=== PATIENT | male | born 1940 | race Caucasian/White ===

== ENCOUNTER → 2017-07-18 | Outpatient (CLI) | payer OTHER ==
[~2017-07-18] MED LIST: ALLOPURINOL 10100 M1 PO; COREG6.25 MG PO; LASIX 40 MG TAB40 M2 PO; LIPITOR40 MG PO; LISINOPRIL2.5 MG PO; XARELTO15 MG PO
== END ==
LOC: HYPER 06:46
DX: I87.2 Venous insufficiency (chronic) (peripheral) (principal); L97.422 Non-pressure chronic ulcer of left heel and midfoot with fat layer exposed; I73.9 Peripheral vascular disease, unspecified; J44.9 Chronic obstructive pulmonary disease, unspecified; R60.0 Localized edema; I10 Essential (primary) hypertension; E78.5 Hyperlipidemia, unspecified; Z95.1 Presence of aortocoronary bypass graft; Z87.891 Personal history of nicotine dependence; Z72.89 Other problems related to lifestyle

== ENCOUNTER → 2017-08-11 | Outpatient (CLI) | payer OTHER | LOC: HYPER 07:07 | DX: L97.422 Non-pressure chronic ulcer of left heel and midfoot with fat layer exposed (principal); I87.2 Venous insufficiency (chronic) (peripheral); I73.9 Peripheral vascular disease, unspecified; J44.9 Chronic obstructive pulmonary disease, unspecified; R60.0 Localized edema; E78.5 Hyperlipidemia, unspecified; I10 Essential (primary) hypertension; Z95.1 Presence of aortocoronary bypass graft; Z87.891 Personal history of nicotine dependence ==

== ENCOUNTER → 2017-09-29 | Outpatient (CLI) | payer OTHER | LOC: HYPER 06:54 | DX: L97.422 Non-pressure chronic ulcer of left heel and midfoot with fat layer exposed (principal); I87.2 Venous insufficiency (chronic) (peripheral); I73.9 Peripheral vascular disease, unspecified; J44.9 Chronic obstructive pulmonary disease, unspecified; R60.0 Localized edema; E78.5 Hyperlipidemia, unspecified; I10 Essential (primary) hypertension; Z87.891 Personal history of nicotine dependence ==

== ENCOUNTER → 2017-10-13 | Outpatient (CLI) | payer OTHER | LOC: HYPER 06:46 | DX: L97.422 Non-pressure chronic ulcer of left heel and midfoot with fat layer exposed (principal); I87.2 Venous insufficiency (chronic) (peripheral); J44.9 Chronic obstructive pulmonary disease, unspecified; I73.89 Other specified peripheral vascular diseases; E78.5 Hyperlipidemia, unspecified; I10 Essential (primary) hypertension; Z95.1 Presence of aortocoronary bypass graft; Z87.891 Personal history of nicotine dependence ==

== ENCOUNTER → 2017-11-03 | Outpatient (CLI) | payer OTHER | LOC: HYPER 06:44 | DX: L97.422 Non-pressure chronic ulcer of left heel and midfoot with fat layer exposed (principal); I73.89 Other specified peripheral vascular diseases; J44.9 Chronic obstructive pulmonary disease, unspecified; R60.0 Localized edema; E78.5 Hyperlipidemia, unspecified; I10 Essential (primary) hypertension; Z87.891 Personal history of nicotine dependence ==

== ENCOUNTER → 2017-11-24 | Outpatient (CLI) | payer OTHER | LOC: HYPER 06:50 | DX: L97.422 Non-pressure chronic ulcer of left heel and midfoot with fat layer exposed (principal); S80.812A Abrasion, left lower leg, initial encounter; I73.89 Other specified peripheral vascular diseases; J44.9 Chronic obstructive pulmonary disease, unspecified; I73.9 Peripheral vascular disease, unspecified; E78.5 Hyperlipidemia, unspecified; I10 Essential (primary) hypertension; Z87.891 Personal history of nicotine dependence; Z95.1 Presence of aortocoronary bypass graft; X58.XXXA Exposure to other specified factors, initial encounter; Y93.89 Activity, other specified; Y92.89 Other specified places as the place of occurrence of the external cause; Y99.8 Other external cause status ==

== ENCOUNTER → 2017-12-12 | Outpatient (CLI) | payer OTHER | LOC: HYPER 06:34 | DX: L97.422 Non-pressure chronic ulcer of left heel and midfoot with fat layer exposed (principal); I73.89 Other specified peripheral vascular diseases; I87.2 Venous insufficiency (chronic) (peripheral); E78.5 Hyperlipidemia, unspecified; I10 Essential (primary) hypertension; J44.9 Chronic obstructive pulmonary disease, unspecified; Z87.01 Personal history of pneumonia (recurrent); Z95.1 Presence of aortocoronary bypass graft; Z96.652 Presence of left artificial knee joint; Z87.891 Personal history of nicotine dependence ==

== ENCOUNTER → 2018-02-10 | Outpatient (CLI) | payer OTHER | LOC: HYPER 07:55 | DX: I87.012 Postthrombotic syndrome with ulcer of left lower extremity (principal); L97.522 Non-pressure chronic ulcer of other part of left foot with fat layer exposed; I70.245 Atherosclerosis of native arteries of left leg with ulceration of other part of foot; L97.422 Non-pressure chronic ulcer of left heel and midfoot with fat layer exposed; L89.153 Pressure ulcer of sacral region, stage 3; I13.0 Hypertensive heart and chronic kidney disease with heart failure and stage 1 through stage 4 chronic kidney disease, or unspecified chronic kidney disease; N18.3 Chronic kidney disease, stage 3 (moderate); I50.9 Heart failure, unspecified; I73.89 Other specified peripheral vascular diseases; I87.2 Venous insufficiency (chronic) (peripheral); E78.5 Hyperlipidemia, unspecified; J44.9 Chronic obstructive pulmonary disease, unspecified; I25.10 Atherosclerotic heart disease of native coronary artery without angina pectoris; Z79.51 Long term (current) use of inhaled steroids; Z87.891 Personal history of nicotine dependence ==

== ENCOUNTER → 2018-02-17 | Outpatient (CLI) | payer OTHER ==
--- NOTE | ~2018-02-17 | 2DMMODE ---
[facility] [place] [address] 2 D/M-MODE ECHOCARDIOGRAM Name: ALEXANDERMYRTLE CARRANZA Room #: [facility]#: [id number] Admission: 02/17/18 Attend Phys: Peter Gongora Discharge: Date of : 42 Date of Service: 02/17/18 1022 Report #: [id number] THIS REPORT FOR: //name// APPROVED REPORT Study performed: 02/17/2018 09:03:35 EXAM: Comprehensive 2D, Doppler, and color-flow Echocardiogram Patient Location: Out-Patient Status: routine BSA: 2.00 HR: 75 bpm BP: 110/70 mmHg Rhythm: Atrial Flutter Other Information Study Quality: Adequate Indications Ischemic cardiomyopathy. Hx: CABG, CHF, HTN, HLP 2D Dimensions RVDd: 35.53 mm IVSd: 15.00 (7-11mm) LVOT Diam: 23.55 (18-24mm) LVDd: 56.25 mm PWd: 12.00 (7-11mm) Ascending Ao: 34.57 (22-36mm) LVDs: 51.23 (25-40mm) Aortic Root: 36.00 mm Volumes Left Atrial Volume (Systole) Single Plane 4CH: 109.57 mL Single Plane 2CH: 92.17 mL LA ESV Index: 54.00 mL/m2 Aortic Valve AoV Peak Ilya.: 1.72 m/s AO Peak Gr.: 11.98 mmHg LVOT Max P.24 mmHg LVOT Max V: 0.55 m/s JESSICA Vmax: 1.40 cm2 Mitral Valve E/A Ratio: 2.7 MV Decel. Time: 191.01 ms MV E Max Ilya.: 1.05 m/s [facility] [address] [place] [address] 2 D/M-MODE ECHOCARDIOGRAM Name: MYRTLE ALEXANDER Room #: [facility]#: [id number] Admission: 02/17/18 Attend Phys: Peter Gongora Discharge: Date of : 42 Date of Service: 02/17/18 1022 Report #: [id number] MV A Ilya.: 0.39 m/s MV PHT: 55.39 ms IVRT: 152.25 ms Pulmonary Valve PV Peak Ilya.: 0.56 m/s PV Peak Gr.: 1.23 mmHg Tricuspid Valve TR Peak Ilya.: 3.30 m/s RAP Estimate: 5.00 mmHg TR Peak Gr.: 44.00 mmHg PA Pressure: 49.00 mmHg Left Ventricle Left ventricle is at the upper limits of normal. Regional wall motion abnormalities are noted. Mild to moderate concentric left ventricular hypertrophy. Left ventricular systolic function is moderate to severely decreased. LVEF is 30-35%. This study is not technically sufficient to allow evaluation of the LV diastolic function due to atrial flutter. Right Ventricle The right ventricle is normal size. The right ventricular systolic function is normal. Atria Left atrium is dilated. The right atrium size is normal. Aortic Valve Aortic valve leaflets are moderately thickened and calcified. Trace aortic regurgitation. Mild to moderate aortic stenosis. Calculated valve area by continuity equation is 1.4cm2. Mitral Valve Mitral valve leaflets are moderately thickened. Moderate mitral annular calcification. Mild mitral regurgitation. No evidence of mitral valve stenosis. Tricuspid Valve The tricuspid valve is normal in structure. Mild tricuspid regurgitation. Estimated PAP is 50mmHg. Pulmonic Valve The pulmonary valve is normal in structure. Trace pulmonic regurgitation. Great [place]essels [facility] [address] [place] [address] 2 D/M-MODE ECHOCARDIOGRAM Name: MYRTLE ALEXANDER Room #: [facility]#: [id number] Admission: 02/17/18 Attend Phys: Peter Gongora Discharge: Date of : 42 Date of Service: 02/17/18 1022 Report #: [id number] The aortic root is normal in size. The ascending aorta is normal in size. IVC is normal in size and collapses >50% with inspiration. Pericardium There is no pericardial effusion. <Conclusion> Left ventricle is at the upper limits of normal. Regional wall motion abnormalities are noted. LVEF is 30-35%. Left atrium is dilated. Aortic valve leaflets are moderately thickened and calcified. Trace aortic regurgitation. Mild to moderate aortic stenosis. Calculated valve area by continuity equation is 1.4cm2. Mitral valve leaflets are moderately thickened. Moderate mitral annular calcification. Mild mitral regurgitation. The tricuspid valve is normal in structure. Mild tricuspid regurgitation. Estimated PAP is 50mmHg. The pulmonary valve is normal in structure. Trace pulmonic regurgitation. There is no pericardial effusion. <ELECTRONICALLY SIGNED> By: Peter Wallace MD 02/17/18 1022 1022 1022 Peter Wallace MD /INF
== END ==
LOC: CV 08:47
DX: I08.1 Rheumatic disorders of both mitral and tricuspid valves (principal); I48.92 Unspecified atrial flutter; I25.5 Ischemic cardiomyopathy; I11.0 Hypertensive heart disease with heart failure; I50.9 Heart failure, unspecified; E78.5 Hyperlipidemia, unspecified; Z95.1 Presence of aortocoronary bypass graft

== ENCOUNTER → 2018-02-22 | Outpatient (CLI) | payer OTHER | LOC: HYPER | DX: I87.012 Postthrombotic syndrome with ulcer of left lower extremity (principal); I70.244 Atherosclerosis of native arteries of left leg with ulceration of heel and midfoot; L97.422 Non-pressure chronic ulcer of left heel and midfoot with fat layer exposed; I70.245 Atherosclerosis of native arteries of left leg with ulceration of other part of foot; L97.522 Non-pressure chronic ulcer of other part of left foot with fat layer exposed; L89.153 Pressure ulcer of sacral region, stage 3; E78.5 Hyperlipidemia, unspecified; I87.2 Venous insufficiency (chronic) (peripheral); I25.10 Atherosclerotic heart disease of native coronary artery without angina pectoris; I13.0 Hypertensive heart and chronic kidney disease with heart failure and stage 1 through stage 4 chronic kidney disease, or unspecified chronic kidney disease; I50.9 Heart failure, unspecified; N18.3 Chronic kidney disease, stage 3 (moderate); J44.9 Chronic obstructive pulmonary disease, unspecified; Z79.51 Long term (current) use of inhaled steroids; Z99.81 Dependence on supplemental oxygen; Z87.891 Personal history of nicotine dependence ==

== ENCOUNTER 2018-02-23 09:08 | Inpatient (IN) | payer OTHER ==
[~2018-02-23] VITALS: Ht 177.8 cm; Wt 86.1 kg
--- NOTE | ~2018-02-23 | HC ---
[facility] [place] [address] CONSULTATION Name: MYRTLE ALEXANDER Juliette Room #: 420-P ADM IN .R.#: [id number] Admission: 02/23/18 Attend Phys: Patrice Aceves MD Discharge: Date of : 42 Report #: [id number] THIS REPORT FOR: //name// CC: Kirsten Aceves DATE OF SERVICE: 02/23/2018 CHIEF COMPLAINT: Ischemia to the left lower extremity with cellulitis. HISTORY OF PRESENT ILLNESS: This is a 77-year-old white male patient with whom I am familiar from outpatient wound care. He developed many months ago and ulceration on the plantar aspect of his heel after receiving cortisone injections. This area has continued to slowly worsen. He has had noninvasive vascular studies, which demonstrated significant arterial disease of the left lower extremity. It was not felt amenable to easy percutaneous intervention; however, he has a significant cardiomyopathy and he has been considered for vascular bypass surgery at within the last 12 months and he was felt to be a very high surgical risk. Therefore, that intervention was not offered. He has had increasing pain in his legs and foot even at rest. He has had increasing erythema to the distal portion of his left foot, some necrosis of the second toe, which is new and he is admitted for ongoing evaluation and treatment with antibiotic therapy for what appears to be an infectious component to the ischemic left foot. PAST MEDICAL HISTORY: Once again is positive for severe peripheral arterial disease. Thus far, no particular intervention has been undertaken. He has a history of ischemic cardiomyopathy, coronary artery disease, status post CABG, history of an atrial flutter, thoracoabdominal aneurysm repair, myocardial infarction. His last echo demonstrates LVEF of 30-35% with regional wall motion abnormalities and moderate aortic stenosis. MEDICATIONS: Fentanyl patch, acetaminophen, hydrocodone, morphine, ondansetron, polyethylene glycol, zolpidem, topical nitroglycerin. SOCIAL HISTORY: The patient is a nonsmoker, denies alcohol use. Lives at home with his . FAMILY HISTORY: Noncontributory. REVIEW OF SYSTEMS: CONSTITUTIONAL: The patient denies fever, chills, weight loss. NEUROLOGICAL: The patient denies focal weakness, numbness or tingling. EYES: The patient denies vision change, redness or drainage. ENT: The patient denies earache, nasal discharge or sore throat. CARDIOVASCULAR: The patient denies chest pain, palpitation or diaphoresis. [address] [address] CONSULTATION Name: MYRTLE ALEXANDER Room #: 420-P [facility] IN [facility]#: [id number] Admission: 02/23/18 Attend Phys: Patrice Aceves MD Discharge: Date of : 42 Report #: [id number] PULMONARY: The patient denies cough or shortness of breath. GASTROINTESTINAL: The patient denies nausea, vomiting, diarrhea or abdominal pain. ORTHOPEDIC: The patient complains of significant pain involving his left heel and left distal foot, as well as ulceration there. Other systems in a 14-point review of systems are negative. PHYSICAL EXAMINATION: VITAL SIGNS: At this time include pulse 67, respiratory rate 14, blood pressure 104/60, and temperature 97.5. GENERAL: This is a chronically ill-appearing male patient who appears to be in moderate discomfort. HEENT: Head normocephalic. Nose and throat clear. NECK: Supple. LUNGS: Clear. HEART: Regular rate and rhythm. ABDOMEN: Bowel sounds present. EXTREMITIES: Examination of the lower extremities demonstrated some necrosis and some eschar formation on his left second toe. He has erythema involving the distal aspect of his left foot. There is a circular ulcer on the plantar aspect of the left heel that has a small amount of granulation tissue, but moderate fibrin present. Distal pulses are nonpalpable. LABORATORY STUDIES: Include a sed rate of 8. Sodium 136, potassium 4.2, CO2 25, BUN 49, creatinine 1.4, albumin 3.1. CRP is 11.8. Lactic acid 1.8. INR 1.5. White blood cell count is 6.7, hemoglobin of 14.0. CLINICAL IMPRESSION: 1. Cellulitis, left foot. 2. Ischemia, left foot with necrosis of second toe. 3. Plantar arterial ulcer, left heel. 4. Severe peripheral disease. 5. Ischemic cardiomyopathy. 6. History of atrial flutter. 7. History of myocardial infarction, status post coronary artery bypass graft. RECOMMENDATIONS: At this point in time, the patient will have infectious disease consultation. I have discussed this with Dr. Oswald. Consider intravenous antibiotic therapy. New cultures will be obtained. We will check an MRI. Although with his sed rate and CRP being somewhat lower, I think the likelihood of an underlying calcaneal osteomyelitis is low. Dr. Velasquez will schedule him for angiography with hopes that some percutaneous intervention would be possible. If not, we would need to revisit his surgical risks and consider whether or not he would be able to undergo a surgical revascularization. We will recommend elevation of the extremity. We will [address] [place] [address] CONSULTATION Name: MYRTLE ALEXANDER Room #: 420-P [facility] IN M.R.#: [id number] Admission: 02/23/18 Attend Phys: Patrice Aceves MD Discharge: Date of : 42 Report #: [id number] recommend a collagen based dressing to the heel on the left side, Betadine to the left second toe, nitroglycerin paste to the dorsal aspect of the foot in hopes of reversing some of the ischemia. I have taken the liberty of starting him on a low-dose fentanyl patch to help control the pain that is preventing him from sleeping and functioning at home. I appreciate being asked to see him in consultation. <ELECTRONICALLY SIGNED> By: Kwabena Fulton MD 02/24/18 0851 1343 0703 Kwabena Fulton MD /nt
--- NOTE | ~2018-02-23 | EKG ---
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 : 1940 Requested By: Nan Flores Order Number: [id number] MD: Hayden Nobles Measurements Intervals Norris Rate: 64 P: [place]: QRS: -25 QRSD: 133 T: 120 QT: 469 QTc: 484 Interpretive Statements Atrial fibrillation Nonspecific intraventricular conduction delay Nonspecific ST and T wave abnormality No previous ECG available for comparison Electronically Signed On 02-24-2018 8:23:04 CDT by Hayden Nobles [email or web address] <ELECTRONICALLY SIGNED> By: Hayden Nobles MD, [facility] 02/24/18 0823 1320 1320 Hayden Nobles MD, FAC /EPI
--- NOTE | ~2018-02-23 | EKG ---
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
--- NOTE | ~2018-02-23 | HC ---
[facility] [place] [address] CONSULTATION Name: MYRTLE ALEXANDER Room #: 420-P [facility] [place] ..#: [id number] Admission: 02/23/18 Attend Phys: Patrice Aceves MD Discharge: Date of : 42 Report #: [id number] THIS REPORT FOR: //name// CC: Kirsten Aceves DATE OF SERVICE: 02/23/2018 TYPE OF REPORT: Infectious diseases consultation. REASON FOR CONSULTATION: I was asked to evaluate concerning left ischemic foot wound with secondary infection. HISTORY OF PRESENT ILLNESS: The patient was a 77-year old, underlying history of ischemic cardiomyopathy, coronary artery disease and peripheral vascular disease. He has had a nonhealing wound to his left plantar heel. This has been ongoing for several months. He was evaluated at [facility] by Dr. Hernandez who recommended peripheral bypass. Cardiology and Anesthesiology would not clear him for surgery due to his cardiomyopathy. He therefore has been treating this with localized wound care. Dr. Fulton evaluated him yesterday for further treatment. He felt inpatient evaluation was necessary to further workup his anatomy for possible percutaneous treatment of his occlusive arterial disease, also for antibiotic therapy. No fever, chills or sweats. Continues to have moderate amount of pain in the left lower leg. He remains on anticoagulation with Xarelto. His left second toe developed swelling and an ulceration over the last 2 weeks. This has worsened. Now has redness to the distal aspect of his dorsal foot. He reports no specific trauma. Minimal drainage. He has had vein harvest from the left leg for his coronary artery bypass grafting. Also noticed to have atrial flutter and a thoracoabdominal aortic aneurysm repair. No cerebrovascular disease reported. REVIEW OF SYSTEMS: Ten-point review otherwise negative. ALLERGIES: Negative. MEDICATIONS: As noted on his MAR, which were reviewed. PAST MEDICAL HISTORY: In addition to the above, he has had a right fem-pop bypass. He is a past smoker. FAMILY HISTORY: Noncontributory. SOCIAL HISTORY: No significant alcohol intake. Lives with his spouse. No HIV risk factors. PHYSICAL EXAMINATION: [facility] [address] [place] [address] CONSULTATION Name: MYRTLE ALEXANDER Room #: 420-P [facility] [place] [facility].#: [id number] Admission: 02/23/18 Attend Phys: Patrice Aceves MD Discharge: Date of : 42 Report #: [id number] GENERAL APPEARANCE: He is well-developed, well-nourished, in no distress. HEENT: Eyes without scleral icterus or conjunctivitis. Mouth without mucositis or ulceration. NECK: Supple with no thyromegaly, mass or JVD. LUNGS: Clear, without adventitial sounds. HEART: Irregular without murmur, gallop or rub. Pulses, femoral +3 on the right, +2 on the left. Popliteal, left feet not palpable. ABDOMEN: Soft and nontender. No hepatosplenomegaly or mass. BACK: Nontender. No CVA tenderness. EXTREMITIES: Left foot with a wound to the plantar aspect of his heel. There was fibrinous debris at the base. No surrounding cellulitis. This was very tender to palpation. Left second toe had eschar with ulceration, 1+ swelling, erythema extended to the dorsum of his distal foot. Small amount of serous drainage was identified. NEUROLOGICAL: Cranial nerves intact. Sensation was intact in both lower extremities. Strength was normal. PSYCHIATRIC: Normal. SKIN: Without rash. LYMPHATIC: No palpable adenopathy. LABORATORY DATA: Creatinine 1.4. Alkaline phosphatase 127. Hemoglobin 14; WBC 6.7 and platelet count 228,000. IMPRESSION: 1. A 77-year old with ischemic cardiomyopathy and peripheral vascular disease, now with ischemic issues involving the left leg. He has known occlusive disease that should require a peripheral bypass; however, the patient is not a surgical candidate per Cardiology recommendations. The patient is to be evaluated with angiogram and possibly percutaneous stenting approach to his care. He will get an increased blood flow to the left foot in order to begin healing. 2. Vascular second toe wound with secondary infection. 3. Chronic left plantar heel wound. 4. Chronic kidney disease. RECOMMENDATIONS: We will continue with IV antibiotic therapy pending further vascular workup. Obtain culture results. Continue wound care. Concern he will ultimately need an amputation of the left second toe. We will see how he does after revascularization procedure. <ELECTRONICALLY SIGNED> By: Steve Oswald MD 02/24/18 1303 1220 0010 Steve Oswald MD /nt
[2018-02-23 10:48] LABS: HEMATOCRIT 42.3 % (42.0-52.0); MCH 31.5 pg (26.0-34.0); MCV 95.4 fL (80.0-100.0); RBC 4.44 mil/uL (4.50-6.00); RDW 20.7 % (10.5-14.5); WBC 6.7 thou/uL (4.0-11.0)
[2018-02-23 11:00] LABS: CALCIUM 8.7 mg/dL (8.5-10.1); CREATININE 1.4 mg/dL (0.7-1.3); POTASSIUM 4.2 mmol/L (3.5-5.1)
[2018-02-23 11:01] LABS: INR 1.5; PROTIME 15.1 Seconds (9.3-11.4)
[2018-02-23 11:06] LABS: ALBUMIN 3.1 g/dL (3.4-5.0); TOTAL BILIRUBIN 0.6 mg/dL (<0.1-1.0); TOTAL PROTEIN 6.2 g/dL (6.4-8.2)
[2018-02-23 11:08] VITALS: BP 104/68
[2018-02-23] MEDS ORDERED: ALLOPURINOL 10100 M1 PO (13:40)
[2018-02-23] MEDS ORDERED: COREG6.25 MG PO (13:41)
[2018-02-23] MEDS ORDERED: LIPITOR40 MG PO (13:41)
[2018-02-23] MEDS ORDERED: XARELTO15 MG PO (13:42)
[2018-02-23] MEDS ORDERED: LASIX 40 MG TAB40 M2 PO (13:42)
[2018-02-23] MEDS ORDERED: LISINOPRIL2.5 MG PO (13:43)
[2018-02-23 16:27] VITALS: BP 134/85
[2018-02-23 19:40] VITALS: BP 115/67
[2018-02-24 04:13] VITALS: BP 89/55
[2018-02-24 07:40] VITALS: BP 100/68
[2018-02-24 09:58] LABS: CALCIUM 9.1 mg/dL (8.5-10.1); CREATININE 1.4 mg/dL (0.7-1.3); POTASSIUM 4.8 mmol/L (3.5-5.1)
[2018-02-24 19:33] VITALS: BP 105/66
[2018-02-25 06:01] LABS: ABSOLUTE NEUTROPHILS 5.7 thou/uL (1.4-8.2); BASOPHILS 0.4 % (0.0-2.0); EOSINOPHILS 1.8 % (0.0-3.0); HEMATOCRIT 38.3 % (42.0-52.0); HEMOGLOBIN 12.2 gm/dL (14.0-18.0); LYMPHOCYTES 11.7 % (24.0-44.0); MCH 30.7 pg (26.0-34.0); PLATELET COUNT 194 thou/uL (150-400); POLYS 75.1 % (36.0-66.0); RBC 3.99 mil/uL (4.50-6.00); RDW 20.8 % (10.5-14.5); WBC 7.5 thou/uL (4.0-11.0)
[2018-02-25 06:07] LABS: CREATININE 1.3 mg/dL (0.7-1.3); POTASSIUM 4.8 mmol/L (3.5-5.1)
[2018-02-25 09:07] LABS: ANISOCYTOSIS 2+; OVALOCYTES FEW
[2018-02-25 09:10] VITALS: BP 99/66
[2018-02-25 17:39] VITALS: BP 87/48
[2018-02-25 19:40] VITALS: BP 109/43
[2018-02-26 04:30] VITALS: BP 100/67
[2018-02-26 05:14] LABS: ABSOLUTE NEUTROPHILS 6.2 thou/uL (1.4-8.2); BASOPHILS 0.3 % (0.0-2.0); EOSINOPHILS 1.2 % (0.0-3.0); HEMATOCRIT 38.5 % (42.0-52.0); HEMOGLOBIN 12.3 gm/dL (14.0-18.0); LYMPHOCYTES 11.9 % (24.0-44.0); MCH 30.9 pg (26.0-34.0); MCHC 31.8 g/dL (28.0-37.0); MCV 96.9 fL (80.0-100.0); MONOCYTES 10.5 % (1.0-8.0); PLATELET COUNT 196 thou/uL (150-400); POLYS 76.1 % (36.0-66.0); RBC 3.97 mil/uL (4.50-6.00); RDW 20.7 % (10.5-14.5); WBC 8.1 thou/uL (4.0-11.0)
[2018-02-26 05:31] LABS: CALCIUM 9.1 mg/dL (8.5-10.1); CREATININE 1.4 mg/dL (0.7-1.3); MAGNESIUM 2.1 mg/dL (1.8-2.4); PHOSPHORUS 4.3 mg/dL (2.5-4.9); POTASSIUM 5.1 mmol/L (3.5-5.1)
[2018-02-26 06:04] LABS: FOLIC ACID 7.4 ng/mL (8.6-58.9)
[2018-02-26 09:40] LABS: ANISOCYTOSIS 2+; OVALOCYTES FEW
[2018-02-26 19:39] VITALS: BP 112/58
[2018-02-27 04:17] VITALS: BP 115/30
[2018-02-27 07:13] VITALS: BP 132/68
[2018-02-27 10:25] VITALS: BP 120/69
[2018-02-27 10:50] VITALS: BP 118/52
[2018-02-27 11:20] VITALS: BP 117/92
[2018-02-27 16:09] VITALS: BP 129/72
== END 2018-02-27 17:30 | disposition left against medical advice (07) | DRG 299 ==
LOC: 4E 09:08 → ENTRNSPT 02-27 17:17 → EDTRNSPT 02-27 17:25 → 4E 02-27 17:30
PROVIDERS: Hospitalist; Nurse Practitioner Family; Nurse Practitioner Gerontology
PROC: B4181ZZ Fluoroscopy of Bilateral Renal Arteries using Low Osmolar Contrast (ICD-10-PCS; principal; 2018-02-27)
PROC: B4101ZZ Fluoroscopy of Abdominal Aorta using Low Osmolar Contrast (ICD-10-PCS; principal; 2018-02-27)
DX: E11.52 Type 2 diabetes mellitus with diabetic peripheral angiopathy with gangrene (principal); E43 Unspecified severe protein-calorie malnutrition; I96 Gangrene, not elsewhere classified; L03.116 Cellulitis of left lower limb; I48.92 Unspecified atrial flutter; I50.20 Unspecified systolic (congestive) heart failure; L97.429 Non-pressure chronic ulcer of left heel and midfoot with unspecified severity; E46 Unspecified protein-calorie malnutrition; I25.5 Ischemic cardiomyopathy; I25.10 Atherosclerotic heart disease of native coronary artery without angina pectoris; E78.5 Hyperlipidemia, unspecified; E11.22 Type 2 diabetes mellitus with diabetic chronic kidney disease; R33.9 Retention of urine, unspecified; I48.2 Chronic atrial fibrillation; I12.9 Hypertensive chronic kidney disease with stage 1 through stage 4 chronic kidney disease, or unspecified chronic kidney disease; R00.1 Bradycardia, unspecified; N18.3 Chronic kidney disease, stage 3 (moderate); Z79.01 Long term (current) use of anticoagulants; Z95.1 Presence of aortocoronary bypass graft; I25.2 Old myocardial infarction; Z28.21 Immunization not carried out because of patient refusal; Z68.27 Body mass index [BMI] 27.0-27.9, adult; Z53.21 Procedure and treatment not carried out due to patient leaving prior to being seen by health care provider
CPT/HCPCS: 10783

== ENCOUNTER → 2018-03-13 | Outpatient (CLI) | payer OTHER | LOC: HYPER 06:52 | DX: I87.012 Postthrombotic syndrome with ulcer of left lower extremity (principal); I70.244 Atherosclerosis of native arteries of left leg with ulceration of heel and midfoot; L97.422 Non-pressure chronic ulcer of left heel and midfoot with fat layer exposed; I70.245 Atherosclerosis of native arteries of left leg with ulceration of other part of foot; L97.522 Non-pressure chronic ulcer of other part of left foot with fat layer exposed; L89.153 Pressure ulcer of sacral region, stage 3; I13.0 Hypertensive heart and chronic kidney disease with heart failure and stage 1 through stage 4 chronic kidney disease, or unspecified chronic kidney disease; I50.9 Heart failure, unspecified; N18.3 Chronic kidney disease, stage 3 (moderate); I87.2 Venous insufficiency (chronic) (peripheral); I25.10 Atherosclerotic heart disease of native coronary artery without angina pectoris; J44.9 Chronic obstructive pulmonary disease, unspecified; E78.5 Hyperlipidemia, unspecified; Z79.51 Long term (current) use of inhaled steroids; Z99.81 Dependence on supplemental oxygen; Z87.891 Personal history of nicotine dependence ==